=== PATIENT | female | born 1990 | race Caucasian/White ===

== ENCOUNTER 2023-07-31 19:29 | Emergency (ER) | payer OTHER ==
[2023-07-31 19:41] VITALS: BP 115/71; O2SAT 97
--- NOTE | 2023-07-31 19:56 | ED Physician Documentation ---
PD HPI OPHTHO - Stated complaint Stated Complaint: BILAT EYE RED/SWOLLEN - Chief complaint Chief Complaint: Heent - History obtained from History obtained from: Patient - Additional information Additional information: 33-year-old female presents with bilateral eye pain, swelling and redness. The patient states that she has 3 young children at home and one of them has had a mild viral illness. Patient noted yesterday that she developed some bilateral eye redness and is worsened today. Initially was more on the right side but this afternoon her left eye has become swollen and much more tender. She has not had any acute vision changes, denies any fever. She has had some mucoid drainage bilaterally. No cough or URI symptoms. She has been using [id number] moisturizing eyedrops and red eye relief eyedrops without relief in her symptoms. She is taking Tylenol without relief. Review of Systems Constitutional: reports: Reviewed and negative Eyes: reports: Discharge, Irritation. 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 : None HEENT: None Psych: None Musculoskeletal: None Derm: None - Past Surgical History Past Surgical History: Yes - Present Medications Home Medications: Ambulatory Orders Medication Instructions Recorded Confirmed Amox/Clav 875/125 [Augmentin] 1 each PO Q12H #14 tablet 07/31/23 Tobramycin/Dexam Ophth Drops 2 drops EACHEYE Q4H 5 Days #2.5 ml 07/31/23 [Tobradex Ophth Drops] - Allergies Allergies/Adverse Reactions: Allergies Allergy/AdvReac Type Severity Reaction Status Date / Time No Known Drug Allergies Allergy Verified 07/31/23 19:33 - Social History Does the pt smoke?: No Smoking Status: Never smoker Does the pt drink ETOH?: Yes Does the pt have substance abuse?: No - Immunizations Immunizations are current?: Yes - POLST Patient has POLST: No PD ED PE NORMAL - Vitals Vital signs reviewed: Yes - General General: Alert and oriented X 3, No acute distress, Well developed/nourished - HEENT HEENT: Atraumatic, PERRL, EOMI, Moist mucous membranes, Pharynx benign, Other (Bilateral conjunctival redness with mucoid drainage bilaterally. There is upper and lower lid swelling of the left eyelids with mild redness, and tenderness with palpation around the orbit. No proptosis. Patient has good extraocular eye movements.) - Neck Neck: Supple, no meningeal sign, No adenopathy Results - Vitals Vitals: Vital Signs - 24 hr 07/31/23 19:33 Temperature 36.8 C Heart Rate 78 Respiratory 16 Rate Blood Pressure 115/71 O2 Saturation 97 Oxygen O2 Source Room air PD Medical Decision Making - ED course Complexity details: considered differential, d/w patient ED course: 33-year-old female presents with bilateral eye redness and drainage as listed above. This likely started as a viral conjunctivitis given exposure to young children with viral illness however I am concerned that she is developing a preseptal cellulitis in the left eye. She has tenderness around the lid with mild swelling and erythema. She does not have signs of orbital cellulitis at this time, no difficulty with eye range of motion. I have recommended that we treat with Augmentin, first dose given now for possible preseptal cellulitis. Will also give her TobraDex for symptom relief. She was cautioned that if she has no improvement in the next 48 hours or if any point she worsens she should return for follow-up.Recommended that she take ibuprofen for improved pain control and she can use a cool compress to the area as well. Advised her to s top using the red eyedrops that she used. Departure - Departure Disposition: 01 Home, Self Care Clinical Impression: Preseptal cellulitis of left eye Conjunctivitis Qualifiers: Conjunctivitis type: acute Acute conjunctivitis type: bacterial Laterality: bilateral Qualified Code(s): H10.33 - Unspecified acute conjunctivitis, bilateral Condition: Good Instructions: ED Conjunctivitis Nonspecific Prescriptions: Amox/Clav 875/125 [Augmentin] 1 each PO Q12H #14 tablet Tobramycin/Dexam Ophth Drops [Tobradex Ophth Drops] 2 drops EACHEYE Q4H 5 Days #2.5 ml Comments: You have conjunctivitis in both eyes but I am concerned about the swelling around your left eye. You may be developing preseptal cellulitis and this can worsen to orbital cellulitis. We will start you on antibiotics now and you should see improvement in 24-48 hours. If you are not improving or if you are worsening at anytime (increased eye pain or difficulty moving the eye, increased swelling around the eye, fever, vision changes) then return to the ER right away. You can take ibuprofen in addition to the tylenol because this will help with the swelling and pain a bit more. Meds sent to [facility]. Forms: PCP List
[2023-07-31] MEDS: AMOX/CLAV 875 MG/125 MG TABLET PO STA (19:58)
[2023-07-31] MEDS: ERYTHROMYCIN OPHTH OINT 1 GM TUBE EACHEYE STA (19:58)
== END 2023-07-31 20:05 | disposition home or self-care (01) ==
LOC: ED 19:29
DX: L03.213 Periorbital cellulitis (principal); H10.33 Unspecified acute conjunctivitis, bilateral
CPT/HCPCS: 99283; A9270; J3490